=== PATIENT | female | born 1940 | race Caucasian/White ===

== ENCOUNTER 2018-10-11 05:33 | Inpatient (IN) | payer MEDICARE ==
[2018-10-11] MEDS: LACTATED RINGER'S 1,000 ML IV ×3 (06:30→16:30)
[2018-10-11] MEDS: ACETAMINOPHEN 1000MG/100ML IV 100 ML IVPB (06:37)
[2018-10-11] MEDS: DEXAMETHASONE 4 MG/ML 1 ML INJ IV (06:40)
[2018-10-11] MEDS ORDERED: MEPERIDINE 25 MG INJ IV (07:30)
[2018-10-11] MEDS ORDERED: LABETALOL HCL 20MG INJ IV (07:30)
[2018-10-11] MEDS ORDERED: HYDROmorphONE 1 MG/5 ML IV SYRINGE IV ×2 (07:30)
[2018-10-11] MEDS ORDERED: hydrALAzine 20 MG INJ IV (07:30)
[2018-10-11] MEDS ORDERED: PROPOFOL 20 ML (07:34)
[2018-10-11] MEDS ORDERED: MIDAZOLAM 1 MG/ML 2 ML INJ (07:34)
[2018-10-11] MEDS ORDERED: ETOMIDATE 20 MG INJ (07:34)
[2018-10-11] MEDS ORDERED: LIDOCAINE 1% (MDV) 20 ML INJ (07:34)
[2018-10-11] MEDS ORDERED: FENTAnyl 50 MCG/ML VIAL (07:35)
[2018-10-11] MEDS ORDERED: DEXAMETHASONE 4 MG/ML 5 ML INJ ×2 (08:13→08:55)
[2018-10-11] MEDS ORDERED: ONDANSETRON 4 MG INJ (08:13)
[2018-10-11] MEDS ORDERED: CEFAZOLIN 1 GM INJ (08:13)
[2018-10-11] MEDS ORDERED: ROPIVACAINE 0.5 % 30 ML VIAL (08:55)
[2018-10-11] MEDS ORDERED: NALOXONE (0.4 MG/ML) INJ IV (10:00)
[2018-10-11] MEDS ORDERED: NACL 0.9% 3 ML SYG IV (10:00)
[2018-10-11] MEDS ORDERED: oxyCODONE 5 MG TAB PO (10:00)
[2018-10-11] MEDS ORDERED: CEFAZOLIN 2 GM/50 ML (PMX) 50 ML IVPB (10:00)
[2018-10-11] MEDS: POLYMYXIN B 500000 UNIT INJ (10:19)
[2018-10-11] MEDS: BACITRACIN 50000 UNITS INJ IRR ×2 (10:19)
[2018-10-11] MEDS: ONDANSETRON 4 MG INJ IV (10:37)
[2018-10-11] MEDS: CEFAZOLIN 2 GM/50 ML (PMX) 50 ML (FOR WT < 120 KG) IVPB (12:38)
[2018-10-11] MEDS: TRANEXAMIC ACID 1,000 MG in D5W 100 ML AT INCISION X1 IVPB (12:39)
[2018-10-11] MEDS: TRANEXAMIC ACID 1,000 MG in D5W 100 ML AT CLOSURE X1 IVPB (12:40)
[2018-10-11] MEDS: GABAPENTIN 100 MG CAP PO ×2 (13:42→20:37)
[2018-10-11] MEDS: KETOROLAC 15 MG INJ IV (14:14)
[2018-10-11] MEDS: CEFAZOLIN 2 GM/50 ML (PMX) 50 ML IVPB (17:07)
[2018-10-11] MEDS: oxyCODONE 5 MG TAB PO (20:37)
[2018-10-11] MEDS: MAGNESIUM HYDROXIDE 30ML CUP PO (22:11)
[2018-10-12] MEDS: CEFAZOLIN 2 GM/50 ML (PMX) 50 ML IVPB ×2 (00:08→09:36)
[2018-10-12] MEDS: LACTATED RINGER'S 1,000 ML IV ×6 (00:30→23:06)
[2018-10-12 05:24] LABS: ADD MAN DIFF? NO
[2018-10-12 05:38] LABS: BASOPHILS % 0.1 % (0.0-2.0); HEMATOCRIT 32.3 % (37.0-47.0); HEMOGLOBIN 10.4 g/dl (12.0-16.0); LYMPHOCYTES # 1.3 10^3/ul (0.8-2.9); LYMPHOCYTES % 8.8 % (15.0-51.0); MEAN CORPUSCULAR HGB CONC 32.2 g/dl (32.0-37.0); MEAN PLATELET VOLUME 10.2 fl (7.4-10.4); MONOCYTE # 0.9 10^3/ul (0.3-0.9); MONOCYTES % 6.5 % (0.0-11.0); NEUTROPHIL # 12.1 10^3/ul (1.6-7.5); NEUTROPHILS % 83.9 % (39.0-77.0); PLATELET COUNT 238 10^3/UL (140-415); RED BLOOD COUNT 3.59 10^6/ul (4.20-5.40); RED CELL DISTRIBUTION WIDTH 13.7 % (11.5-14.5)
[2018-10-12 05:38] LABS: WHITE BLOOD COUNT 14.4 10^3/ul (4.8-10.8)
[2018-10-12 05:47] LABS: ANION GAP 7 (5-13); BLOOD UREA NITROGEN 19 mg/dl (7-20); CALCIUM 9.3 mg/dl (8.4-10.2); CARBON DIOXIDE 28 mmol/L (21-31); CHLORIDE 104 mmol/L (97-110); CREATININE 0.83 mg/dl (0.44-1.00); GLUCOSE 127 mg/dl (70-220); POTASSIUM 4.3 mmol/L (3.5-5.1); SODIUM 139 mmol/L (135-144)
[2018-10-12] MEDS: ASPIRIN (EC) 81 MG TAB PO ×2 (09:00→21:29)
[2018-10-12] MEDS: GABAPENTIN 100 MG CAP PO ×3 (09:36→21:29)
[2018-10-12] MEDS: DOCUSATE SODIUM 100 MG CAP PO ×2 (09:36→21:28)
[2018-10-12] MEDS ORDERED: ONDANSETRON 4 MG INJ IV (10:00)
[2018-10-12] MEDS: LOSARTAN 50 MG TAB PO (21:29)
[2018-10-12] MEDS: SENNA TAB PO (21:41)
[2018-10-12] MEDS: oxyCODONE 5 MG TAB PO (23:01)
[2018-10-13] MEDS: LACTATED RINGER'S 1,000 ML IV ×4 (00:30→16:30)
[2018-10-13 05:28] LABS: ADD MAN DIFF? NO
[2018-10-13 05:30] LABS: BASOPHILS % 0.3 % (0.0-2.0); EOSINOPHILS # 0.2 10^3/ul (0.0-0.5); EOSINOPHILS % 1.4 % (0.0-7.0); HEMATOCRIT 33.6 % (37.0-47.0); HEMOGLOBIN 10.9 g/dl (12.0-16.0); LYMPHOCYTES # 2.9 10^3/ul (0.8-2.9); LYMPHOCYTES % 24.1 % (15.0-51.0); MEAN CORPUSCULAR HEMOGLOBIN 29.4 pg (29.0-33.0); MEAN CORPUSCULAR HGB CONC 32.4 g/dl (32.0-37.0); MEAN CORPUSCULAR VOLUME 90.6 fl (82.0-101.0); MEAN PLATELET VOLUME 10.4 fl (7.4-10.4); MONOCYTE # 0.9 10^3/ul (0.3-0.9); MONOCYTES % 7.8 % (0.0-11.0); NEUTROPHIL # 7.8 10^3/ul (1.6-7.5); NEUTROPHILS % 65.9 % (39.0-77.0); PLATELET COUNT 243 10^3/UL (140-415); RED BLOOD COUNT 3.71 10^6/ul (4.20-5.40); RED CELL DISTRIBUTION WIDTH 13.9 % (11.5-14.5)
[2018-10-13 05:30] LABS: WHITE BLOOD COUNT 11.9 10^3/ul (4.8-10.8)
[2018-10-13 06:10] LABS: ANION GAP 4 (5-13); BLOOD UREA NITROGEN 20 mg/dl (7-20); CALCIUM 9.2 mg/dl (8.4-10.2); CARBON DIOXIDE 31 mmol/L (21-31); CHLORIDE 103 mmol/L (97-110); GLUCOSE 84 mg/dl (70-220); POTASSIUM 4.5 mmol/L (3.5-5.1); SODIUM 138 mmol/L (135-144)
[2018-10-13] MEDS: PANTOPRAZOLE (EC) 40 MG TAB PO (06:23)
[2018-10-13] MEDS: DOCUSATE SODIUM 100 MG CAP PO ×2 (08:25→20:55)
[2018-10-13] MEDS: GABAPENTIN 100 MG CAP PO ×3 (08:25→20:55)
[2018-10-13] MEDS: ASPIRIN (EC) 81 MG TAB PO ×3 (08:25→20:55)
[2018-10-13] MEDS: hydrALAzine 20 MG INJ IV (09:23)
[2018-10-13 10:20] LABS: ADD UMIC YES; UR ASCORBIC ACID NEGATIVE (NEGATIVE); UR BACTERIA FEW /HPF (NONE SEEN); UR BILIRUBIN (Dip) NEGATIVE (NEGATIVE); UR BLOOD (Dip) NEGATIVE (NEGATIVE); UR CLARITY CLEAR (CLEAR); UR COLOR COLORLESS (YELLOW); UR GLUCOSE (Dip) NEGATIVE (NEGATIVE); UR KETONES (Dip) NEGATIVE (NEGATIVE); UR LEUKOCYTE ESTERASE (Dip) TRACE Leu/ul (NEGATIVE); UR NITRITE (Dip) NEGATIVE (NEGATIVE); UR RBC 1 /HPF (0-5); UR SPECIFIC GRAVITY (Dip) 1.008 (1.003-1.030); UR SQUAMOUS EPITHELIAL CELL FEW /HPF (FEW); UR TOTAL PROTEIN (Dip) NEGATIVE (NEGATIVE); UR UROBILINOGEN (Dip) NEGATIVE (NEGATIVE); UR WBC 4 /HPF (0-5)
[2018-10-13] MEDS: BISACODYL 10 MG SUPP PR (11:36)
[2018-10-13] MEDS: NA PHOSPHATE/BIPHOS 133 ML ENEMA PR (13:51)
[2018-10-13 16:09] LABS: OCCULT BLOOD STOOL NEGATIVE (NEGATIVE)
[2018-10-13] MEDS: LEVOFLOXACIN 750 MG TABLET PO (16:16)
[2018-10-13] MEDS: MAGNESIUM HYDROXIDE 30ML CUP PO (20:55)
[2018-10-13] MEDS: LOSARTAN 50 MG TAB PO (20:55)
[2018-10-13] MEDS: SENNA TAB PO (20:55)
[2018-10-14] MEDS: LACTATED RINGER'S 1,000 ML IV ×4 (00:06→12:36)
[2018-10-14 05:08] LABS: ADD MAN DIFF? NO
[2018-10-14 05:18] LABS: BASOPHILS % 0.2 % (0.0-2.0); EOSINOPHILS # 0.1 10^3/ul (0.0-0.5); EOSINOPHILS % 0.9 % (0.0-7.0); HEMATOCRIT 34.9 % (37.0-47.0); HEMOGLOBIN 11.2 g/dl (12.0-16.0); LYMPHOCYTES # 1.9 10^3/ul (0.8-2.9); LYMPHOCYTES % 18.7 % (15.0-51.0); MEAN CORPUSCULAR HEMOGLOBIN 28.6 pg (29.0-33.0); MEAN CORPUSCULAR HGB CONC 32.1 g/dl (32.0-37.0); MONOCYTE # 0.9 10^3/ul (0.3-0.9); MONOCYTES % 8.5 % (0.0-11.0); NEUTROPHIL # 7.1 10^3/ul (1.6-7.5); NEUTROPHILS % 71.2 % (39.0-77.0); PLATELET COUNT 244 10^3/UL (140-415); RED BLOOD COUNT 3.92 10^6/ul (4.20-5.40); RED CELL DISTRIBUTION WIDTH 13.7 % (11.5-14.5)
[2018-10-14 05:37] LABS: ANION GAP 7 (5-13); BLOOD UREA NITROGEN 16 mg/dl (7-20); CALCIUM 9.2 mg/dl (8.4-10.2); CARBON DIOXIDE 34 mmol/L (21-31); CHLORIDE 93 mmol/L (97-110); CREATININE 0.94 mg/dl (0.44-1.00); GLUCOSE 107 mg/dl (70-220); POTASSIUM 4.4 mmol/L (3.5-5.1); SODIUM 134 mmol/L (135-144)
[2018-10-14] MEDS: PANTOPRAZOLE (EC) 40 MG TAB PO (05:49)
[2018-10-14] MEDS: DOCUSATE SODIUM 100 MG CAP PO (09:29)
[2018-10-14] MEDS: GABAPENTIN 100 MG CAP PO ×2 (09:29→12:30)
[2018-10-14] MEDS: ASPIRIN (EC) 81 MG TAB PO (09:29)
[2018-10-14] MEDS: LOSARTAN 50 MG TAB PO (09:30)
== END 2018-10-14 15:27 | disposition home health service (06) | DRG 470 ==
LOC: REC 05:33 → MS1 12:07
PROC: 0SRD0JZ Replacement of Left Knee Joint with Synthetic Substitute, Open Approach (ICD-10-PCS; principal; 2018-10-11 07:30)
DX: M17.12 Unilateral primary osteoarthritis, left knee (principal); I10 Essential (primary) hypertension; E78.5 Hyperlipidemia, unspecified; R10.9 Unspecified abdominal pain
CPT/HCPCS: 73560; 80048; 81001; 82270; 85025; 86850; 86900; 86901; 87081; 88304; 88311; 97116; 97161; 97530

== ENCOUNTER 2018-11-17 09:40 | Emergency (ER) | payer MEDICARE, OTHER ==
[2018-11-17 10:50] LABS: ADD MAN DIFF? NO
[2018-11-17 10:57] LABS: BASOPHILS % 0.4 % (0.0-2.0); EOSINOPHILS # 0.1 10^3/ul (0.0-0.5); EOSINOPHILS % 1.9 % (0.0-7.0); HEMATOCRIT 36.3 % (37.0-47.0); HEMOGLOBIN 11.7 g/dl (12.0-16.0); LYMPHOCYTES # 1.8 10^3/ul (0.8-2.9); LYMPHOCYTES % 23.8 % (15.0-51.0); MEAN CORPUSCULAR HEMOGLOBIN 28.8 pg (29.0-33.0); MEAN CORPUSCULAR HGB CONC 32.2 g/dl (32.0-37.0); MEAN CORPUSCULAR VOLUME 89.4 fl (82.0-101.0); MONOCYTE # 0.5 10^3/ul (0.3-0.9); MONOCYTES % 6.6 % (0.0-11.0); NEUTROPHIL # 4.9 10^3/ul (1.6-7.5); NEUTROPHILS % 66.8 % (39.0-77.0); PLATELET COUNT 299 10^3/UL (140-415); RED BLOOD COUNT 4.06 10^6/ul (4.20-5.40); RED CELL DISTRIBUTION WIDTH 13.2 % (11.5-14.5)
[2018-11-17 10:57] LABS: WHITE BLOOD COUNT 7.4 10^3/ul (4.8-10.8)
[2018-11-17] MEDS ORDERED: ASPIRIN 81 MG TAB (11:07)
[2018-11-17 11:09] LABS: ALANINE AMINOTRANSFERASE 18 IU/L (13-69); ALBUMIN 3.9 g/dl (3.3-4.9); ALBUMIN/GLOBULIN RATIO 1.34; ALKALINE PHOSPHATASE 88 IU/L (42-121); ANION GAP 8 (5-13); ASPARTATE AMINO TRANSFERASE 23 IU/L (15-46); BILIRUBIN,INDIRECT 0.4 mg/dl (0-1.1); BILIRUBIN,TOTAL 0.4 mg/dl (0.2-1.3); BLOOD UREA NITROGEN 17 mg/dl (7-20); CALCIUM 10.2 mg/dl (8.4-10.2); CARBON DIOXIDE 27 mmol/L (21-31); CHLORIDE 105 mmol/L (97-110); CREATININE 0.89 mg/dl (0.44-1.00); GLUCOSE 97 mg/dl (70-220); POTASSIUM 3.9 mmol/L (3.5-5.1); SODIUM 140 mmol/L (135-144); TOTAL PROTEIN 6.8 g/dl (6.1-8.1)
[2018-11-17] MEDS: ASPIRIN 325 MG TAB PO (11:12)
[2018-11-17] MEDS: ACETAMINOPHEN 325 MG TAB PO (11:21)
[2018-11-17 11:28] LABS: ADD UMIC YES; UR ASCORBIC ACID NEGATIVE (NEGATIVE); UR BILIRUBIN (Dip) NEGATIVE (NEGATIVE); UR BLOOD (Dip) 1+ mg/dL (NEGATIVE); UR CLARITY CLEAR (CLEAR); UR COLOR STRAW (YELLOW); UR GLUCOSE (Dip) NEGATIVE (NEGATIVE); UR KETONES (Dip) NEGATIVE (NEGATIVE); UR LEUKOCYTE ESTERASE (Dip) NEGATIVE Leu/ul (NEGATIVE); UR NITRITE (Dip) NEGATIVE (NEGATIVE); UR RBC 1 /HPF (0-5); UR SPECIFIC GRAVITY (Dip) 1.005 (1.003-1.030); UR TOTAL PROTEIN (Dip) NEGATIVE (NEGATIVE); UR UROBILINOGEN (Dip) NEGATIVE (NEGATIVE); UR WBC 3 /HPF (0-5)
[2018-11-17] MEDS: SOD CHLORIDE 0.9% 100 ML (13:03)
[2018-11-17] MEDS: IOHEXOL 300MG/ML 150 ML BTL (13:03)
[2018-11-17 14:25] LABS: THYROID STIMULATING HORMONE 0.504 MIU/L (0.465-4.680)
== END 2018-11-17 16:59 | disposition home or self-care (01) ==
LOC: E/R 09:40
DX: E04.9 Nontoxic goiter, unspecified (principal); I10 Essential (primary) hypertension
CPT/HCPCS: 36415; 71045; 71260; 80053; 81001; 84443; 85025; 93005; 93971; 99285-25